=== PATIENT | female | born 1960 | race Caucasian/White ===

== ENCOUNTER 2018-08-01 00:58 | Emergency (ER) | payer BC ==
[~2018-08-01] VITALS: Ht 167.6 cm; Wt 56.7 kg
[~2018-08-01 00:58] MED LIST: ELA50
[2018-08-01 01:02] VITALS: BP 113/78
--- NOTE | 2018-08-01 01:02 | NUR ---
TO BED # 11 AMBULATORY , REPORT GIVEN TO CRISPIN TEMPLETON
--- NOTE | 2018-08-01 01:08 | NUR ---
PT PRESENTS TO ED C/O LEFT ARM PAIN X 4 DAYS DENIES INJURY OR TRAUMA. POSITIVE RANGE ON MOTION IN ARM. CMS INTACT. NO REDNESS OR SWELLING TO ARM. PT DENIES ANY MEDICAL HISTORY BESIDES NEUROPOTHY IN LOWER RIGHT LEG. PT IN BED PNEDING MD DODSON.
--- NOTE | 2018-08-01 01:10 | NUR ---
Dr. Schultz evaluating patient at bedside.
[2018-08-01] MEDS ORDERED: MORPHINE SULFATE 4 MG/ML SYR IM ONE (01:15)
[2018-08-01 01:37] VITALS: BP 130/69
== END 2018-08-01 01:38 | disposition home or self-care (01) ==
LOC: MED 00:58
DX: M79.602 Pain in left arm (principal); F17.200 Nicotine dependence, unspecified, uncomplicated; Z79.899 Other long term (current) drug therapy
CPT/HCPCS: 96372; 99283; J2270

== ENCOUNTER 2018-10-22 14:48 | Emergency (ER) | payer MEDICAID ==
[~2018-10-22] VITALS: Ht 167.6 cm; Wt 54.9 kg
[2018-10-22 14:53] VITALS: BP 135/92
[2018-10-22 16:48] VITALS: BP 123/72
== END 2018-10-22 16:48 | disposition home or self-care (01) ==
LOC: MED 14:48
DX: R42 Dizziness and giddiness (principal); R06.02 Shortness of breath; R20.2 Paresthesia of skin; F17.210 Nicotine dependence, cigarettes, uncomplicated; Z79.899 Other long term (current) drug therapy
CPT/HCPCS: 70450; 71045; 82948; 99284

== ENCOUNTER 2019-09-03 12:03 | Emergency (ER) | payer OTHER ==
[~2019-09-03] VITALS: Ht 167.6 cm; Wt 60.8 kg
[2019-09-03 12:11] VITALS: BP 119/71
--- NOTE | 2019-09-03 12:25 | NUR ---
58/F BIB SELF. REFERRED BY PCP FOR ABN. LABS. CREATININE 6.7. BUN 38 CALCIUM 8.4. PT DENIES URINARY SYMPTOMS. HX: ANXIETY. DENIES N/V/D; SKIN IS PINK/WARM/DRY; AAOX4 WITH EVEN AND STEADY GAIT; LUNGS CLEAR BL; HR EVEN AND REGULAR; PT DENIES ANY FEVER, CP, SOB, OR COUGH AT THIS TIME; PATIENT STATES PAIN OF 0/10 AT THIS TIME. PATIENT POSITIONED FOR COMFORT; HOB ELEVATED; BEDRAILS UP X1; BED DOWN. ER MD MADE AWARE OF PT STATUS.
--- NOTE | 2019-09-03 12:43 | NUR ---
LAB AT BEDSIDE.
[2019-09-03 12:54] LABS: BASOPHILS % (AUTO) 0.6 % (0.0-2.0); EOSINOPHILS # (AUTO) 0.1 K/uL (0-0.4); EOSINOPHILS % (AUTO) 2.1 % (0.0-4.0); HEMATOCRIT 39.7 % (36-48); HEMOGLOBIN 13.3 g/dL (12.0-16.0); LYMPHOCYTES # (AUTO) 1.9 K/uL (2.5-16.5); LYMPHOCYTES % (AUTO) 29.8 % (20.5-51.1); MEAN CORPUSCULAR HEMOGLOBIN 29 pg (27-31); MEAN CORPUSCULAR HGB CONC 33 g/dL (33-37); MEAN CORPUSCULAR VOLUME 85.6 fL (80-94); MONOCYTES # (AUTO) 0.6 K/uL (0.8-1.0); MONOCYTES % (AUTO) 8.6 % (1.7-9.3); NEUTROPHILS # (AUTO) 3.8 K/uL (1.8-7.7); NEUTROPHILS % (AUTO) 58.9 % (42.2-75.2); PLATELET COUNT (AUTO) 250 K/uL (140-450); RED BLOOD CELL COUNT(AUTO) 4.64 MIL/uL (4.20-5.40); RED CELL DISTRIBUTION WIDTH 13.6 % (11.6-13.7); WHITE BLOOD COUNT (AUTO) 6.5 K/uL (4.8-10.8)
[2019-09-03 13:23] LABS: ALBUMIN 3.6 g/dL (3.4-5.0); ANION GAP 14.7 (8-16); CARBON DIOXIDE 24.2 mmol/L (21-32); POTASSIUM 3.9 mmol/L (3.5-5.1); TOTAL BILIRUBIN 0.5 mg/dL (0.0-1.0)
[2019-09-03 13:52] VITALS: BP 123/64
--- NOTE | 2019-09-03 13:52 | NUR ---
Patient discharged with v/s stable. Written and verbal after care instructions given and explained. Patient verbalized understanding. Ambulatory with to car. All questions addressed prior to discharge. Advised to follow up with PMD.
== END 2019-09-03 13:52 | disposition home or self-care (01) ==
LOC: MED 12:03
DX: R79.9 Abnormal finding of blood chemistry, unspecified (principal); Z79.899 Other long term (current) drug therapy
CPT/HCPCS: 36415; 80053; 81002; 85025; 99283